=== PATIENT | female | born 1970 | race Caucasian/White ===

== ENCOUNTER → 2016-10-13 | Outpatient (CLI) | payer BC ==
--- NOTE | 2016-10-16 08:39 | US ---
EXAM DESCRIPTION: Abdomen,Complete CLINICAL HISTORY: 46 years,Female,ABD PAIN COMPARISON: None TECHNIQUE: Multiple real-time sonographic images were obtained of the entire abdomen. FINDINGS: The liver demonstrates normal echotexture. No masses. No cysts. The liver craniocaudal length is 16 cm. The gallbladder demonstrates an anechoic lumen. There are no stones. There is no pericholecystic fluid. The gallbladder wall thickness is unremarkable. No intrahepatic biliary ductal dilatation. The common bile duct measures 3.9 mm. The right kidney demonstrates normal cortical echotexture and thickness. There are no stones, hydronephrosis, or masses. The right kidney measures 10.3 cm in length. The left kidney demonstrates normal cortical echotexture and thickness. There are no stones, hydronephrosis, or masses. The left kidney measures 10.7 cm in length. The spleen demonstrates normal echotexture. No masses. It measures 9.1 cm in craniocaudal length. The visualized portions of the head and body of the pancreas are unremarkable. No free-fluid in the abdomen. The aorta is unremarkable for age. IMPRESSION: Unremarkable ultrasound of the abdomen. Electronically signed by: Pedro Whitlock MD 10/16/2016 8:38 AM CDT
== END | disposition home or self-care (01) ==
LOC: US 08:43
PROVIDERS: ATTEND Nurse Practitioner Family
DX: R10.84 Generalized abdominal pain (principal); M54.5 Low back pain

== ENCOUNTER → 2017-04-25 | Outpatient (CLI) | payer BC | LOC: LAB.O 10:24 | PROVIDERS: ATTEND Physician Assistant | DX: J06.9 Acute upper respiratory infection, unspecified (principal) ==